=== PATIENT | male | born 1955 | race Caucasian/White ===

== ENCOUNTER 2018-09-19 06:59 | Day surgery (SDC) | payer MEDICARE ==
[2018-09-19] MEDS ORDERED: Sodium Chloride 0.9% 10 ML Syringe FLUSH PRN ×2 (07:00→08:00)
[2018-09-19] MEDS ORDERED: Bupivacaine 0.5% 30 ML SDV INJECT ONE ×3 (07:00→10:07)
[2018-09-19] MEDS ORDERED: Midazolam 1 MG/ML 2 ML SDV IV ONE (07:00)
[2018-09-19] MEDS ORDERED: Gentamicin 40 MG/ML 2 ML Vial IV ONE (07:00)
[2018-09-19] MEDS ORDERED: fentaNYL 100 MCG/2 ML SDV IV ONE (07:00)
[2018-09-19] MEDS ORDERED: Ampicillin/Sulbactam Na 3 GM in Sodium Chloride 0.9% 100 ML IV ONE (07:00)
[2018-09-19] MEDS ORDERED: Lidocaine 1% 30 ML SDV INJECT ONE ×3 (07:00→10:07)
[2018-09-19] MEDS ORDERED: Propofol 200 MG/20 ML SDV IV ONE (07:00)
[2018-09-19] MEDS ORDERED: Ondansetron 4 MG/2 ML SDV IV ONE (07:00)
[2018-09-19] MEDS ORDERED: Bupivacaine 0.5% 30 ML SDV ONE (07:35)
[2018-09-19] MEDS ORDERED: Lidocaine 1% 30 ML SDV ONE (07:35)
[2018-09-19] MEDS ORDERED: Gentamicin 40 MG/ML 2 ML Vial ONE ×2 (07:35→09:45)
[2018-09-19] MEDS ORDERED: Lactated Ringers 1,000 ML IV SCH (08:00)
[2018-09-19] MEDS ORDERED: Acetaminophen/oxyCODONE 325-5 MG Tab PO PRN (10:20)
--- NOTE | 2018-09-19 10:23 | PCM.OPNOTE ---
- General Post-Op/Procedure Note Date of Surgery/Procedure: 09/19/18 Operative Procedure(s): right foot I&D with partial 3rd and 4th metatarsal amputation and wash out. Pre Op Diagnosis: right foot diabetic ulcer with abscess and possible osteomyelitis Post-Op Diagnosis: fredo Anesthesia Technique: Local, MAC Primary Surgeon: Pastora Cano Anesthesia Provider: Raul Rose Pathology: 3rd metatarsal head, cultures bone, cultures post irrigation EBL in mLs: 10 Complications: none Condition: Good Free Text/Narrative:: Intake & Output 09/18/18 09/19/18 09/19/18 22:59 06:59 14:59 Intake Total 100 Balance 100 Pt tolerated procedure well and was transported to recovery with vascular status intact to right foot. Well padded compression dressing applied.
--- NOTE | 2018-09-20 14:34 | OR ---
DATE: 09/19/2018 PREOPERATIVE DIAGNOSES: 1. 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 2. Right foot possible osteomyelitis of the third metatarsal head. POSTOPERATIVE DIAGNOSES: 1. 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 2. Right foot possible osteomyelitis of the third metatarsal head. PROCEDURE PERFORMED: Right foot incision and drainage with diabetic foot ulcer debridement and washout, third and fourth metatarsal partial amputation. ANESTHESIA: Local MAC with preoperative local block of 10 mL of 1:1 mixture of 1% lidocaine plain and 0.5% Marcaine plain. TOURNIQUET TIME: 54 minutes, pneumatic ankle tourniquet. ESTIMATED BLOOD LOSS: Minimal. SPECIMENS REMOVED: Third metatarsal head, right foot. Cultures from the third metatarsal head and post-irrigation cultures. COMPLICATIONS: None. INDICATIONS: Marcelino is a 63-year-old diabetic male who presents for right foot diabetic ulcer with infection. He had an abscess in the clinic, which I did drain out, placed on antibiotics and did a culture at that time. I did an x-ray and there was a possible lucency to the plantar metatarsal head. He has had this ulceration for approximately 6 years now and it keeps opening up on him and getting infected. He does have pain to this area. We did try some offloading inserts with no relief. X-rays of the right foot reveals previous partial second metatarsal amputation and large hallux valgus. Third digit is completely dislocated and pushing the third metatarsal plantar. Also, dislocation of the fourth digit. Possible subtle lucency to the plantar third metatarsal head. No gas in the soft tissues. The patient voiced good understanding of proposed procedure and possible complications, and elects to have surgery at this time. DESCRIPTION OF PROCEDURE: The patient was taken to the operating room, lying in supine position. After adequate anesthesia induction as described above, the right foot was prepped and draped in the usual sterile fashion. A pneumatic ankle tourniquet was inflated to 225 mmHg. I did not use an Esmarch with the tourniquet. Attention was then directed to the right foot plantar third metatarsal head area where there was an ulceration present. The ulcer was cut out and debrided. All infected tissue was cleaned out of that area. It did probe upward and dorsally to the digits 3 and 4, so I did go to the dorsal aspect of the foot and made an incision between the third and fourth metatarsals to gain access to this area of infection. Sharp and blunt dissections were performed down to the level of the third and fourth metatarsal head. All infected tissue was cleaned out and the area was inspected. A sagittal saw was used to resect the head of the third and fourth metatarsals, and the third metatarsal head was cultured and sent to the lab. A bone rasp was used to rasp any sharp bone edges. Fluoroscopy was used to verify proper length of the amputations. The area was then again inspected for any infected tissue and I did not see any. The area was then irrigated with 2 L of normal saline mixed with gentamicin. The tourniquet was let down and good blood flow with healthy tissue was visualized in all areas. Post-irrigation cultures were taken. Deep closure was completed with 3-0 Vicryl and skin closure to the dorsal aspect was performed with 4-0 nylon. The area at the bottom was partially closed and then packed open the rest. He did get IV Unasyn on the day of the surgery. He will be sent home with oral antibiotics. They were also given postoperative dressing change instructions. He tolerated the anesthesia well and was transferred to Recovery with vascular status intact as noted by immediate hyperemia to all digits upon deflation of the ankle tourniquet. He was then discharged home when he met hospital discharge requirements. [facility] /[id number]
== END 2018-09-19 12:10 | disposition home or self-care (01) ==
LOC: DL.SDS 06:59
PROVIDERS: ATTEND Podiatrist
DX: E11.621 Type 2 diabetes mellitus with foot ulcer (principal); L97.511 Non-pressure chronic ulcer of other part of right foot limited to breakdown of skin; I10 Essential (primary) hypertension; Z98.890 Other specified postprocedural states; Z79.84 Long term (current) use of oral hypoglycemic drugs; Z79.82 Long term (current) use of aspirin; Z79.899 Other long term (current) drug therapy
CPT/HCPCS: 87070; 87075; 87077; 87186; 93005; J0295; J1580; J2001; J2250; J2405; J2704; J3010; J3490; J7050; J7120

== ENCOUNTER 2023-10-24 09:04 | Day surgery (SDC) | payer MEDICARE ==
[2023-10-24] MEDS ORDERED: Acetaminophen 325 MG Tab PO PRN (09:15)
[2023-10-24] MEDS ORDERED: Ondansetron 4 MG/2 ML SDV IVPUSH PRN (09:15)
[2023-10-24] MEDS ORDERED: Acetaminophen/Codeine 300-30 MG Tab PO PRN (09:15)
[2023-10-24] MEDS: Sodium Chloride 0.9% 10 ML Syringe FLUSH PRN (09:39)
[2023-10-24] MEDS: Proparacaine 0.5% Ophth Soln 15 ML Bottle EYELF ONE ×2 (09:40→10:55)
[2023-10-24] MEDS: Moxifloxacin 0.5% Ophth Soln 3 ML Bottle EYELF ONE (09:41)
[2023-10-24] MEDS: Povidone-Iodine 5% Sterile Ophth Soln 30 ML Bottle EYELF ONE ×2 (09:41→10:55)
[2023-10-24] MEDS: Tropicamide 1% Ophth Soln 15 ML Bottle EYELF ONE (09:42)
[2023-10-24] MEDS: Phenylephrine 10% Ophth Soln 5 ML Bot EYELF ONE (09:42)
[2023-10-24] MEDS: Timolol Maleate 0.5% Ophth Soln 5 ML Bottle EYELF ONE (09:43)
[2023-10-24] MEDS: Cataract Ophth Solution EYELF ONE (09:43)
[2023-10-24] MEDS: Lidocaine 1% 30 ML SDV ONE (11:01)
[2023-10-24] MEDS: Vancomycin 500 MG SDV EYELF ONE (11:01)
[2023-10-24] MEDS: Dexamethasone/Neomycin/Polymyxin B Ophth Oint 3.5 GM Tube EYELF ONE (11:02)
[2023-10-24] MEDS: Diclofenac Sodium 0.1% Ophth Soln 5 ML Bottle EYELF ONE (11:02)
[2023-10-24] MEDS: Apraclonidine 0.5% Ophth Soln 5 ML Bot EYELF ONE (11:02)
== END 2023-10-24 11:45 | disposition home or self-care (01) ==
LOC: DL.SDS 09:04
PROVIDERS: ATTEND Ophthalmology
DX: E11.36 Type 2 diabetes mellitus with diabetic cataract (principal); H25.812 Combined forms of age-related cataract, left eye; H40.1122 Primary open-angle glaucoma, left eye, moderate stage; I10 Essential (primary) hypertension; Z79.899 Other long term (current) drug therapy; Z79.84 Long term (current) use of oral hypoglycemic drugs
CPT/HCPCS: A9270-GY; C1783; J3370; J3490

== ENCOUNTER 2023-12-12 08:15 | Day surgery (SDC) | payer MEDICARE ==
[~2023-12-12 08:15] MED LIST: Acetaminophen 325 MG Tab PO PRN; Acetaminophen/Codeine 300-30 MG Tab PO PRN; Cataract Ophth Solution EYERT ONE; Moxifloxacin 0.5% Ophth Soln 3 ML Bottle EYERT ONE; Ondansetron 4 MG/2 ML SDV IVPUSH PRN; Phenylephrine 10% Ophth Soln 5 ML Bot EYERT ONE; Povidone-Iodine 5% Sterile Ophth Soln 30 ML Bottle EYERT ONE; Proparacaine 0.5% Ophth Soln 15 ML Bottle EYERT ONE; Sodium Chloride 0.9% 10 ML Syringe FLUSH PRN; Timolol Maleate 0.5% Ophth Soln 5 ML Bottle EYERT ONE; Tropicamide 1% Ophth Soln 15 ML Bottle EYERT ONE
[2023-12-12] MEDS ORDERED: Acetaminophen 325 MG Tab PO PRN (08:30)
[2023-12-12] MEDS ORDERED: Acetaminophen/Codeine 300-30 MG Tab PO PRN (08:30)
[2023-12-12] MEDS ORDERED: Ondansetron 4 MG/2 ML SDV IVPUSH PRN (08:30)
[2023-12-12] MEDS: Sodium Chloride 0.9% 10 ML Syringe FLUSH PRN (08:36)
[2023-12-12] MEDS: Proparacaine 0.5% Ophth Soln 15 ML Bottle EYERT ONE ×3 (08:44→09:35)
[2023-12-12] MEDS: Moxifloxacin 0.5% Ophth Soln 3 ML Bottle EYERT ONE (08:45)
[2023-12-12] MEDS: Povidone-Iodine 5% Sterile Ophth Soln 30 ML Bottle EYERT ONE ×3 (08:46→09:38)
[2023-12-12] MEDS: Tropicamide 1% Ophth Soln 15 ML Bottle EYERT ONE (08:47)
[2023-12-12] MEDS: Phenylephrine 10% Ophth Soln 5 ML Bot EYERT ONE (08:48)
[2023-12-12] MEDS: Timolol Maleate 0.5% Ophth Soln 5 ML Bottle EYERT ONE (08:48)
[2023-12-12] MEDS: Cataract Ophth Solution EYERT ONE (08:49)
[2023-12-12] MEDS: Lidocaine 1% 30 ML SDV ONE ×2 (09:23→09:46)
[2023-12-12] MEDS: Vancomycin 500 MG SDV EYERT ONE ×2 (09:25→09:46)
[2023-12-12] MEDS: Apraclonidine 0.5% Ophth Soln 5 ML Bot EYERT ONE ×2 (09:26→09:52)
[2023-12-12] MEDS: Diclofenac Sodium 0.1% Ophth Soln 5 ML Bottle EYERT ONE ×2 (09:26→09:52)
[2023-12-12] MEDS: Dexamethasone/Neomycin/Polymyxin B Ophth Oint 3.5 GM Tube EYERT ONE ×2 (09:27→09:53)
[2023-12-12] MEDS: Balanced Salt Solution Ophth Irrig 15 ML Bottle EYERT ONE (09:46)
== END 2023-12-12 10:25 | disposition home or self-care (01) ==
LOC: DL.SDS 08:15
PROVIDERS: ATTEND Ophthalmology
DX: E11.36 Type 2 diabetes mellitus with diabetic cataract (principal); H25.811 Combined forms of age-related cataract, right eye; H40.1112 Primary open-angle glaucoma, right eye, moderate stage; I10 Essential (primary) hypertension; Z79.84 Long term (current) use of oral hypoglycemic drugs; Z79.899 Other long term (current) drug therapy
CPT/HCPCS: 00142; A9270-GY; C1783; J3370; J3490; V2632